=== PATIENT | female | born 2005 | race Caucasian/White ===

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

== ENCOUNTER 2024-06-20 23:28 | Emergency (ER) | payer OTHER ==
[~2024-06-20] VITALS: Ht 160 cm; Wt 113.4 kg
[~2024-06-20 23:28] MED LIST changes: +CYCLOBENZAPRINE10 MG PO; +LAMOTRIGINE25 M1 PO; +LEVOTHYROXINE75 MCG PO; +SERTRALINE HYDR25 MG PO
[2024-06-20] MEDS ORDERED: Tdap Vaccine 0.5 ML SYR (Adult Vaccine) IM ONE (23:40)
[2024-06-21] MEDS ORDERED: CEPHALEXIN 500 MG CAP PO ONE (00:35)
[2024-06-21] MEDS ORDERED: CEPHALEXIN500 M1 PO (00:36)
== END 2024-06-21 01:25 | disposition home or self-care (01) ==
LOC: ED 23:28
DX: S61.214A Laceration without foreign body of right ring finger without damage to nail, initial encounter (principal); Z98.890 Other specified postprocedural states; W26.8XXA Contact with other sharp object(s), not elsewhere classified, initial encounter; Y93.89 Activity, other specified; Y92.89 Other specified places as the place of occurrence of the external cause; Y99.8 Other external cause status

== ENCOUNTER → 2024-10-15 | Outpatient (CLI) | payer OTHER ==
[~2024-10-15] MED LIST changes: +CEPHALEXIN500 M1 PO
[2024-10-15 11:55] LABS: FREE T4 1.11 ng/dl (0.89-1.76)
[2024-10-17 15:07] LABS: TB1 Ag VALUE 0.04 IU/mL (.)
== END | disposition home or self-care (01) ==
LOC: LAB 10:45
PROVIDERS: ATTEND Nurse Practitioner Family
DX: E03.9 Hypothyroidism, unspecified (principal); Z11.1 Encounter for screening for respiratory tuberculosis; Z13.220 Encounter for screening for lipoid disorders

== ENCOUNTER → 2024-12-15 | Outpatient (CLI) | payer OTHER | END | disposition home or self-care (01) | LOC: LAB 09:44 | PROVIDERS: ATTEND Internal Medicine | DX: E03.9 Hypothyroidism, unspecified (principal) ==

== ENCOUNTER → 2025-02-18 | Outpatient (CLI) | payer OTHER | END | disposition home or self-care (01) | LOC: LAB 16:22 | PROVIDERS: ATTEND Nurse Practitioner Family | DX: Z01.84 Encounter for antibody response examination (principal) ==